=== PATIENT | female | born 1995 | race Caucasian/White ===

== ENCOUNTER 2017-03-16 16:11 | Emergency (ER) | payer OTHER ==
[2017-03-16 17:13] LABS: Hematocrit 41 % (35-47); Mean Corpuscular HGB Conc 34 g/dl (31-36); Mean Corpuscular Hemoglobin 29 pg (27-31); Mean Corpuscular Volume 86 fL (80-97); Mean Platelet Volume 9 um3 (7.4-10.4); Red Blood Count 4.75 10^6/ul (4.0-5.4); Red Cell Distribution Width 14 % (10.5-15); White Blood Count 11.3 10^3/ul (3.5-10.8)
[2017-03-16 17:33] LABS: ALT 17 U/L (7-52); AST 13 U/L (13-39); Albumin 4.2 g/dL (3.2-5.2); Alkaline Phosphatase 57 U/L (34-104); Anion Gap 8 mmol/L (2-11); BUN/Creatinine Ratio 14.9 (8-20); Blood Urea Nitrogen 10 mg/dL (6-24); CO2 Carbon Dioxide 24 mmol/L (22-32); Calcium 9.7 mg/dL (8.6-10.3); Chloride 105 mmol/L (101-111); EGFR African American 142.9 (>60); EGFR Non-African American 111.1 (>60); Globulin 3.1 g/dL (2-4); Glucose 87 mg/dL (70-100); Potassium 3.8 mmol/L (3.5-5.0); Sodium 137 mmol/L (133-145); Total Protein 7.3 g/dL (6.4-8.9)
[2017-03-16 17:45] LABS: Alcohol < 10 mg/dL (<10)
[2017-03-16 18:10] VITALS: BP 129/68
[2017-03-16 18:15] LABS: Urine Bacteria 1+ (Absent); Urine Bilirubin Negative (Negative); Urine Glucose Negative (Negative); Urine Nitrite Negative (Negative)
[2017-03-16 18:24] LABS: Benzodiazepine Urine Screen None Detected (None Detect)
--- NOTE | 2017-03-24 15:10 | ED ---
David Marquez Angela, scribed for Harsh Hackett MD on 03/16/17 at 1725 . Neurological HPI - HPI Summary HPI Summary: This is pt is a 21 y/o female BIBA to [facility] s/p seizure today. Pt's mom reports her seizure lasted around 20-25 minutes. Pt states she was sitting down when prior to her seizure she began to experience body chills, "jello" legs, and sweating. She states that she can feel when she's about to have a seizure and texted her mother at 14:17 before her seizure began. Pt notes being able to see during her seizure and remembering everything but unable to speak. Pt has a PMHx of seizures since the age of 3 and used to slur her words prior to each seizure (usually only lasted 5 minutes). She had a EEG when she was younger. Per mother, as the pt has become older her seizures have lasted longer. Pt notes feeling stressed lately but has been sleeping ok. She currently denies headache, fever, memory loss, confusion, motor weakness. Pt is currently on Zoloft (for 1 month) for anxiety. She denies any drugs or alcohol use. - History of Current Complaint Chief Complaint: EDSeizure Stated Complaint: SEIZURE Time Seen by Provider: 03/16/17 16:38 Hx Obtained From: Patient Onset/Duration: Sudden Onset Timing: Sudden Onset Pain Intensity: 4 Pain Scale Used: 0-10 Numeric Character: Other: - body chills, legs like "jello", sweating prior to seizure Syncope Context: Unwitnessed Aggravating: Nothing Alleviating: Nothing Associated Signs and Symptoms: Positive: Seizure, Anxiety - history of anxiety.. Negative: Headache, Memory Loss, Confusion, Weakness, Numbness, Fever , Recent Illness, Chest Pain - Allergy/Home Medications Allergies/Adverse Reactions: Allergies Allergy/AdvReac Type Severity Reaction Status Date / Time No Known Allergies Allergy Verified 03/16/17 16:29 PMH/Surg Hx/FS Hx/Imm Hx Neurological History: Reports: Hx Seizures Psychiatric History: Reports: Hx Anxiety Infectious Disease History: No Infectious Disease History: Denies: Traveled Outside the [place] in Last 30 Days - Social History Alcohol Use: None Substance Use Type: Reports: None Smoking Status (MU): Never Smoked Tobacco Review of Systems Positive: Chills - prior to seizure, now resolved. Negative: Fever Negative: Erythema Negative: Sore Throat Negative: Chest Pain Negative: Shortness Of Breath, Cough Negative: Abdominal Pain, Vomiting, Nausea Negative: dysuria, hematuria Positive: Other - POSITIVE: legs like "jello". Negative: Myalgia, Edema Negative: Rash Neurological: Other - NEGATIVE: dizziness Negative: Headache, Weakness, Slurred Speech All Other Systems Reviewed And Are Negative: Yes Physical Exam - Summary Physical Exam Summary: Constitutional: Well-developed, Well-nourished, Alert. (-) Distressed Skin: Warm, Dry HENT: Eyes: Conjunctiva normal Neck: Musculoskeletal ROM normal neck. (-) JVD, (-) Stridor, (-) Tracheal deviation Cardio: Rhythm regular, rate normal, Heart sounds normal; Intact distal pulses; The pedal pulses are 2+ and symmetric. Radial pulses are 2+ and symmetric. (-) Murmur Pulmonary/Chest wall: Effort normal. (-) Respiratory distress, (-) Wheezes, (-) Rales Abd: Soft. (-) Tenderness, (-) Distension, (-) Guarding, (-) Rebound Musculoskeletal: (-) Edema Lymph: (-) Cervical adenopathy Neuro: Alert, Oriented x3, Strength normal, Cranial nerves II-XII are grossly intact. (-) Dysmetria, (-) Nystagmus, (-) Ataxia by finger to nose testing, (-) Sensory deficit. Psych: Mood and affect Normal Triage Information Reviewed: Yes Vital Signs On Initial Exam: Initial Vitals Temp Pulse Resp BP Pulse Ox 98.1 F 80 18 124/76 100 03/16/17 16:23 03/16/17 16:23 03/16/17 16:23 03/16/17 16:23 03/16/17 16:23 Vital Signs Reviewed: Yes - [place] Coma Scale Coma Scale Total: 15 Diagnostics - Vital Signs Vital Signs Temp Pulse Resp BP Pulse Ox 03/16/17 16:46 100 03/16/17 16:25 69 17 98 03/16/17 16:23 98.1 F 80 18 124/76 100 - Laboratory Result Diagrams: 03/16/17 16:56 03/16/17 16:56 Lab Statement: Any lab studies that have been ordered have been reviewed, and results considered in the medical decision making process. - EKG 16:57 Cardiac Rate: NL - 62 bpm EKG Rhythm: Sinus Rhythm EKG Interpretation: No STEMI Re-Evaluation - Re-Evaluation First Eval Re-Evaluation Time: 18:10 Comment: I updated the mother and the pt. Course/Dx - Course Course Of Treatment: Pt will be discharged and is advised to follow with Dr. Latham. I discussed care of pt with Dr. Garay and she agrees that the pt would benefit from this. - Diagnoses Provider Diagnoses: Breakthrough seizure Discharge - Discharge Plan Condition: Stable Disposition: HOME Patient Education Materials: Recurrent Seizures in Adults (ED) Referrals: Kemi Latham MD [Medical Doctor] - Additional Instructions: Please follow up with Dr. Latham (neurology) for further evaluation. RETURN TO THE EMERGENCY DEPARTMENT FOR CHANGING OR WORSENING SYMPTOMS. The documentation as recorded by the David zurita Angela accurately reflects the service I personally performed and the decisions made by me, Harsh Hackett MD.
== END 2017-03-16 18:44 | disposition home or self-care (01) ==
LOC: ED 16:11
DX: G40.909 Epilepsy, unspecified, not intractable, without status epilepticus (principal); F41.9 Anxiety disorder, unspecified
CPT/HCPCS: 36415; 80053; 80307; 80320; 81003; 81015; 83605; 83735; 85025; 85610; 87086; 93005; 99282; G0480